=== PATIENT | female | born 1995 | race Two or more races ===

== ENCOUNTER 2017-10-01 13:46 | Emergency (ER) | payer SELFPAY ==
[2017-10-01 13:59] VITALS: BP 124/70
--- NOTE | 2017-10-01 14:18 | ER Document Report ---
ED GI/ - General Mode of Arrival: Ambulatory Information source: Patient - General Chief Complaint: Vaginal Pain Stated Complaint: LABIA SWELLING Time Seen by Provider: 10/01/17 14:09 Notes: Patient is a 22-year-old female who presents to the emergency department today with complaints of a bruising over her vaginal area with slight pain. Patient states she had sexual intercourse 3 days ago and noticed this bruising after that. Patient states her last menstrual period was September 11. Patient denies any vaginal discharge, concern for STD, vaginal itching, vomiting, chills, or abdominal pain. (KIKI SMITH) - Related Data Allergies/Adverse Reactions: No Known Allergies Allergy (Verified 10/04/17 14:53) Past Medical History - General Information source: Patient - Social History Smoking Status: Never Smoker Cigarette use (# per day): No Frequency of alcohol use: None Drug Abuse: None Lives with: Family Family History: Reviewed & Not Pertinent - Medical History Medical History: Negative Surgical Hx: Negative Review of Systems - Review of Systems Constitutional: No symptoms reported EENT: No symptoms reported Cardiovascular: No symptoms reported Respiratory: No symptoms reported Gastrointestinal: No symptoms reported Genitourinary: No symptoms reported Female Genitourinary: See HPI, Other - vaginal pain, bruising Musculoskeletal: No symptoms reported Skin: No symptoms reported Hematologic/Lymphatic: No symptoms reported Neurological/Psychological: No symptoms reported -: Yes All other systems reviewed and negative Physical Exam - Vital signs Vitals: Temp Pulse Resp BP Pulse Ox 99.4 F 79 16 124/70 98 10/01/17 13:58 10/01/17 13:58 10/01/17 13:58 10/01/17 13:58 10/01/17 13:58 - Notes Notes: Physical Exam: General: Alert, appears well. HEENT: Normocephalic. Atraumatic. PERRL. Extraocular movements intact. Oropharynx clear. Neck: Supple. Non-tender. Respiratory: No respiratory distress. Clear and equal breath sounds bilaterally. Cardiovascular: Regular rate and rhythm. Abdominal: Normal Inspection. Non-tender. No distension. Normal Bowel Sounds. Female Genitourinary: Performed with female nurse Valerie in attendance. contusion noted on right labia majora with no vesicles erythema or concerns of infection Back: Non-tender. No deformity or step off. Extremities: Moves all four extremities. Upper extremities: Normal inspection. Normal ROM. Lower extremities: Normal inspection. No edema. Normal ROM. Neurological: Normal cognition. AAOx4. Normal speech. Psychological: Normal affect. Normal Mood. Skin: Warm. Dry. Normal color. (KIKI SMITH) Course - Re-evaluation Re-evalutation: 10/01/17 14:24 Patient has bruising with contusion noted on right labia majora with no vesicles erythema or concerns of infection. No cystic structures palpated. Patient states that this occurred approximately 3 days ago swelling has gone down from the initial day. She also states she had intercourse 3 days ago. Her signs and symptoms are consistent with contusion secondary to intercourse. Advised patient to remain abstinent for the next several days as symptoms should reside. Return precautions were provided (KYREE RILEY) - Vital Signs Vital signs: Temp Pulse Resp BP Pulse Ox 99.4 F 79 16 124/70 98 10/01/17 13:58 10/01/17 13:58 10/01/17 13:58 10/01/17 13:58 10/01/17 13:58 Discharge - Discharge Clinical Impression: Contusion of labia majora Qualifiers: Encounter type: initial encounter Qualified Code(s): S30.23XA - Contusion of vagina and vulva, initial encounter Condition: Good Disposition: HOME, SELF-CARE Instructions: Contusion ([facility]) Referrals: [facility] [NO LOCAL MD] - Follow up as needed Scribe Attestation: 10/04/17 18:44 I personally performed the services described documentation, reviewed and edited the documentation which was dictated to describe my presence, and it accurately records my words and actions. (YKREE RILEY) Scribe Documentation - Scribe Written by Scribe:: Rai Cash, 10/01/2017 1440 acting as scribe for :: Elian
== END 2017-10-01 14:30 | disposition home or self-care (01) ==
LOC: ER 13:46
DX: S30.23XA Contusion of vagina and vulva, initial encounter (principal); R10.2 Pelvic and perineal pain; N90.89 Other specified noninflammatory disorders of vulva and perineum; W51.XXXA Accidental striking against or bumped into by another person, initial encounter
CPT/HCPCS: 99283

== ENCOUNTER 2017-10-02 21:43 | Emergency (ER) | payer SELFPAY ==
--- NOTE | 2017-10-03 00:12 | ER Document Report ---
ED General - General Chief Complaint: Vaginal Pain Stated Complaint: VAGINAL ISSUES/PAIN Time Seen by Provider: 10/03/17 00:11 Notes: Patient is a 22-year-old female who presents with ongoing bruising to her right labia. The patient was seen in the emergency department for the same states that the bruising and swelling has worsened prompting her to return to the emergency department. She states that the pain as a throbbing, aching, constant pain and has made it difficult to walk. She has not tried anything to improve the pain. She denies any discharge or bleeding from the area. No recurrent penetrative intercourse or trauma to the area. She denies a history of similar symptoms prior to the past 2 days. The swelling and bruising did start after sexual intercourse. TRAVEL OUTSIDE OF THE [place] IN LAST 30 DAYS: No - Related Data Allergies/Adverse Reactions: No Known Allergies Allergy (Verified 10/02/17 23:32) Past Medical History - General Information source: Patient - Social History Smoking Status: Never Smoker Chew tobacco use (# tins/day): No Frequency of alcohol use: None Drug Abuse: None Lives with: Spouse/Significant other Family History: Reviewed & Not Pertinent Patient has suicidal ideation: No Patient has homicidal ideation: No Renal/ Medical History: Denies: Hx Peritoneal Dialysis Review of Systems - Review of Systems Notes: Constitutional: Negative for fever. HENT: Negative for sore throat. Eyes: Negative for visual changes. Cardiovascular: Negative for chest pain. Respiratory: Negative for shortness of breath. Gastrointestinal: Negative for abdominal pain, vomiting or diarrhea. Genitourinary: Positive for bruising and swelling to the right labia majora and minora Musculoskeletal: Negative for back pain. Skin: Negative for rash. Neurological: Negative for headaches, weakness or numbness. 10 point ROS negative except as marked above and in HPI. Physical Exam - Vital signs Vitals: Temp Pulse Resp BP Pulse Ox 98.6 F 101 H 16 128/68 H 99 10/02/17 22:04 10/02/17 22:04 10/02/17 22:04 10/02/17 22:04 10/02/17 22:04 Interpretation: Tachycardic Notes: PHYSICAL EXAMINATION: GENERAL: Well-appearing, well-nourished and in no acute distress. HEAD: Atraumatic, normocephalic. EYES: sclera anicteric, conjunctiva are normal. ENT: Moist mucous membranes. NECK: Normal range of motion LUNGS: Normal work of breathing HEART: 2+ radial pulses bilaterally : There is prominent bruising and ecchymosis to the entirety of the right labia majora without any fluctuance or areas to suggest a abscess or Bartholin' s gland cyst. No additional external vaginal findings. EXTREMITIES: no pitting or edema. No cyanosis. NEUROLOGICAL: No focal neurological deficits. Moves all extremities spontaneously and on command. PSYCH: Normal mood, normal affect. SKIN: Warm, Dry, normal turgor, no rashes or lesions noted. Course - Re-evaluation Re-evalutation: 10/03/17 03:57 Presentation is most consistent with progressive bruising to the right labia majora after sexual intercourse. I have extended the patient that the swelling and bruising will likely peak at 3 days from the time of injury and then gradually improved. There is not appear to be any signs of infection or abscess collection. The patient denies any additional new or alternative concerns. The remainder of her exam is unremarkable. I have reviewed appropriate sex practices with the patient and her boyfriend at the bedside to prevent recurrent injuries. I have also advised pelvic rest until the patient has had complete resolution of the swelling and bruising. At this time will discharge with return precautions and follow-up recommendations. Verbal discharge instructions given a the bedside and opportunity for questions given. Medication warnings reviewed. Patient is in agreement with this plan and has verbalized understanding of return precautions and the need for primary care follow-up in the next 24-72 hours. - Vital Signs Vital signs: Temp Pulse Resp BP Pulse Ox 98.0 F 71 16 115/75 99 10/03/17 00:20 10/03/17 00:20 10/03/17 00:20 10/03/17 00:20 10/03/17 00:20 Discharge - Discharge Clinical Impression: Hematoma of labia majora Contusion of labia majora Qualifiers: Encounter type: initial encounter Qualified Code(s): S30.23XA - Contusion of vagina and vulva, initial encounter Condition: Good Disposition: HOME, SELF-CARE Additional Instructions: Please avoid any penetrative sexual intercourse until your labia has completely healed. For your pain: Take ibuprofen 600 mg and acetaminophen 1000 mg every 6 hours together as needed for pain. You can also apply a cool compress for a covered ice pack to the area to help reduce the pain. Return for worsening pain , fever, or any other symptoms that are worrisome to you.
[2017-10-03 00:23] VITALS: BP 115/75
== END 2017-10-03 00:22 | disposition home or self-care (01) ==
LOC: ER 21:43
DX: S30.23XA Contusion of vagina and vulva, initial encounter (principal); X58.XXXA Exposure to other specified factors, initial encounter; R10.2 Pelvic and perineal pain
CPT/HCPCS: 99283

== ENCOUNTER 2017-10-04 14:51 | Emergency (ER) | payer SELFPAY ==
--- NOTE | 2017-10-04 15:12 | ER Document Report ---
ED Medical Screen (RME) - General Chief Complaint: Vaginal Pain Stated Complaint: VAGINAL PAIN Time Seen by Provider: 10/04/17 15:03 Mode of Arrival: Ambulatory Information source: Patient Notes: 22 y.o female with a PMHx of tachycardia presents to the ED with vaginal bruising of onset 09/30/17. She has been seen here in the ED twice for her vaginal pain and denies having intercourse since the bruising began but now notices bumps and is achy. She denies any N/V/D or fevers. Pt denies any other medical issues. She denies any known thyroid issues. She is from [place] and has had a recent stress test for her hx of tachycardia. I have greeted and performed a rapid initial assessment of the patient. A comprehensive ED assessment and evaluation of the patient, analysis of test results, and completion of the medical decision making process will be conducted by additional ED providers. PHYSICAL EXAM: General: Alert, appears well. HEENT: Normocephalic. Atraumatic. Neck: Supple. Cardiovascular: Tachycardic rate regular rhythm. Respiratory: CTAB Abdominal: No distension. Extremities: Moves all four extremities. Neurological: Normal cognition. AAOx4. Normal speech. Psychological: Normal affect. Normal Mood. TRAVEL OUTSIDE OF THE [place] IN LAST 30 DAYS: No - Related Data Allergies/Adverse Reactions: No Known Allergies Allergy (Verified 10/04/17 14:53) Past Medical History Renal/ Medical History: Denies: Hx Peritoneal Dialysis Physical Exam - Vital signs Vitals: Temp Pulse Resp BP Pulse Ox 98.8 F 146 H 28 H 121/89 H 99 10/04/17 14:58 10/04/17 14:58 10/04/17 14:58 10/04/17 14:58 10/04/17 14:58 Course - Vital Signs Vital signs: Temp Pulse Resp BP Pulse Ox 98.8 F 146 H 28 H 121/89 H 99 10/04/17 14:58 10/04/17 14:58 10/04/17 14:58 10/04/17 14:58 10/04/17 14:58 Scribe Documentation - Scribe Written by Scribe:: Rai Pascal 10/04/17 2315 acting as scribe for :: Elian
[2017-10-04] MEDS ORDERED: NORMAL SALINE 1000 ML 1,000 ML IV ONE (15:36)
--- NOTE | 2017-10-04 15:57 | ER Document Report ---
ED General - General Chief Complaint: Vaginal Pain Stated Complaint: VAGINAL PAIN Time Seen by Provider: 10/04/17 15:03 Mode of Arrival: Ambulatory Information source: Patient, [facility] Records Notes: 22-year-old female with a history of tachycardia presents for the third time this week with complaints of bumps on her labia. Patient was seen earlier this week for labia pain and found to have significant swelling and contusion secondary to rough intercourse which was consensual. Patient denies history of STD, but no discharge. She is sexually active with one partner but does not use protection. Her last menstrual period was September 11, 2017. She denies any other complaints. She states that she has been icing the labia and has not had intercourse since that time. Patient is from [place]. She states that her resting heart rate is between 110 -120. TRAVEL OUTSIDE OF THE [place] IN LAST 30 DAYS: No - HPI Onset: Other Onset/Duration: Gradual Quality of pain: Achy, Throbbing Severity: None Associated symptoms: None Exacerbated by: Movement Relieved by: Remaining still Similar symptoms previously: Yes Recently seen / treated by doctor: Yes - Related Data Allergies/Adverse Reactions: No Known Allergies Allergy (Verified 10/04/17 14:53) Past Medical History - General Information source: Patient, [facility] Records - Social History Smoking Status: Never Smoker Frequency of alcohol use: Occasional Drug Abuse: None Lives with: Family Family History: Reviewed & Not Pertinent Patient has suicidal ideation: No Patient has homicidal ideation: No - Past Medical History Cardiac Medical History: Reports: Other - Tachycardia Renal/ Medical History: Denies: Hx Peritoneal Dialysis Review of Systems - Review of Systems Notes: REVIEW OF SYSTEMS: CONSTITUTIONAL : Denies fever, chills, or sweats. Denies recent illness. Denies weight loss, recent hospitalizations. EENT: Denies visual changes, eye pain. Denies nasal or sinus congestion or discharge. Denies sore throat, oral lesions, difficulty swallowing. CARDIOVASCULAR: Denies chest pain. Denies palpitations. Denies lower extremity edema. RESPIRATORY: Denies cough, cold, or chest congestion. Denies shortness of breath, wheezing. GASTROINTESTINAL: Denies abdominal pain or distention. Denies nausea, vomiting , or diarrhea. Denies blood in vomitus, stools, or per rectum. Denies black, tarry stools. Denies constipation. GENITOURINARY: Denies difficulty urinating, painful urination, frequency, blood in urine, or vaginal discharge. MUSCULOSKELETAL: Denies back or neck pain or stiffness. Denies joint pain or swelling. SKIN: Denies rash, lesions or sores. HEMATOLOGIC : Denies easy bruising or bleeding. LYMPHATIC: Denies swollen glands. NEUROLOGICAL: Denies confusion or altered mental status. Denies passing out or loss of consciousness. Denies dizziness or lightheadedness. Denies headache. Denies weakness or paralysis. Denies problems difficulty with ambulation, slurred speech. Denies sensory loss, numbness, or tingling. Denies seizures. PSYCHIATRIC: Denies anxiety or stress. Denies depression, suicidal ideation, or homicidal ideation. Denies visual or auditory hallucinations. Physical Exam - Vital signs Vitals: Temp Pulse Resp BP Pulse Ox 98.8 F 146 H 28 H 121/89 H 99 10/04/17 14:58 10/04/17 14:58 10/04/17 14:58 10/04/17 14:58 10/04/17 14:58 Interpretation: Tachycardic. No: Hypoxic, Febrile - Notes Notes: PHYSICAL EXAMINATION: GENERAL: Well-appearing, well-nourished and in no acute distress. HEAD: Atraumatic, normocephalic. EYES: Pupils equal round and reactive to light, extraocular movements intact, conjunctiva are normal. ENT: Nares patent, oropharynx clear without exudates. Moist mucous membranes. NECK: Normal range of motion, supple without lymphadenopathy LUNGS: Breath sounds clear to auscultation bilaterally and equal. No wheezes rales or rhonchi. HEART: Regular rate and rhythm without murmurs ABDOMEN: Soft, nontender, nondistended abdomen. No guarding, no rebound. No masses appreciated. Female : 2 small flesh like lesions just superior to the introitus. Nonvesicular, nonpustular, nontender. Labial swelling, bruising, right >left. no vaginal discharge Musculoskeletal: Normal range of motion, no pitting or edema. No cyanosis. NEUROLOGICAL: Cranial nerves grossly intact. Normal speech, normal gait. Normal sensory, motor exams PSYCH: Normal mood, normal affect. SKIN: Warm, Dry, normal turgor, Course - Re-evaluation Re-evalutation: 10/04/17 15:56 22-year-old female with known tachycardia presents for the third time this week for concern of labial bumps that she saw this morning. Patient was seen earlier this week for labial contusions after consensual rough sex. Upon arrival patient is tachycardic, afebrile. She does not appear toxic or dehydrated. She is in no acute distress. Previous medical records were reviewed. Giorgio is significant for 2 small flesh-colored pinpoint bumps that do not appear to be herpetic. Swabs were obtained and sent. VSS. Patient's is in NAD. exam is significant for labial swelling , bruising and two pinpoint flesh colored non-tender lesions superior to entroitos, does not look like hsv, hpv. swabs obtained and pending. Patient d/c'd in stable condition. 10/05/17 05:38 - Vital Signs Vital signs: Temp Pulse Resp BP Pulse Ox 98.7 F 87 17 112/73 99 10/04/17 17:54 10/04/17 17:54 10/04/17 17:54 10/04/17 17:54 10/04/17 17:54 - Laboratory Result Diagrams: 10/04/17 15:50 10/04/17 15:50 Laboratory results interpreted by me: 10/04/17 10/04/17 10/04/17 15:50 15:50 16:58 Lymphocytes % 9.2 L Monocytes % 15.2 H Total Bilirubin 2.8 H Urine Protein >=500 H Urine Glucose (UA) 50 H Urine Ketones 80 H Urine Blood MODERATE H Urine Urobilinogen 2.0 H - EKG Interpretation by Ut EKG shows normal: Sinus rhythm Rate: Tachycardia Rhythm: NSR When compared to previous EKG there are: No significant change Discharge - Discharge Clinical Impression: Lesion of labia, Tachycardia, Labial swelling, labial bruising, Hematoma of labia majora Contusion of labia majora Qualifiers: Encounter type: subsequent encounter Qualified Code(s): S30.23XD - Contusion of vagina and vulva, subsequent encounter Condition: Good Disposition: HOME, SELF-CARE Instructions: Genital Herpes ([facility]), Contusion ([facility]) Additional Instructions: Your exam is not consistent with herpes or any other sexually transmitted disease. The lab tests for herpes will not result today but we will call you if they are positive. No home-going medications are recommended at this time. Follow up with your physician tomorrow for further care or return to the ED IMMEDIATELY if symptoms worsen or new concerns occur. If you cannot afford to follow up with your primary care physician a list of low cost clinics have been provided at the end of your discharge papers as well.
[2017-10-04 16:12] LABS: ABSOLUTE LYMPHOCYTES (AUTO) 0.7 10^3/uL (0.5-4.7); ABSOLUTE MONOCYTES (AUTO) 1.1 10^3/uL (0.1-1.4); ABSOLUTE NEUT (AUTO) 5.6 10^3/uL (1.7-8.2); BASOPHILS % (AUTO) 0.3 % (0-2); EOSINOPHILS % (AUTO) 0.1 % (0-6); HEMATOCRIT 41.7 % (36.0-47.0); HEMOGLOBIN 14.3 g/dL (12.0-15.5); LYMPHOCYTES % (AUTO) 9.2 % (13-45); MEAN CORPUSCULAR HEMOGLOBIN 30.4 pg (27.0-33.4); MEAN CORPUSCULAR HGB CONC 34.4 g/dL (32.0-36.0); MEAN CORPUSCULAR VOLUME 88 fl (80-97); MONOCYTES % (AUTO) 15.2 % (3-13); PLATELET COUNT 156 10^3/uL (150-450); RED BLOOD COUNT 4.71 10^6/uL (3.72-5.28); RED CELL DISTRIBUTION WIDTH 13.1 % (11.5-14.0); SEGMENTED NEUTROPHILS % (AUTO) 75.2 % (42-78); TOTAL CELLS COUNTED % (AUTO) 100 %; WHITE BLOOD COUNT 7.5 10^3/uL (4.0-10.5)
[2017-10-04 16:31] LABS: ALANINE AMINOTRANSFERASE 24 U/L (9-52); ALBUMIN 4.7 g/dL (3.5-5.0); ALKALINE PHOSPHATASE 70 U/L (38-126); ANION GAP 15 (5-19); ASPARTATE AMINO TRANSFERASE 21 U/L (14-36); BILIRUBIN,DIRECT 0.2 mg/dL (0.0-0.4); BILIRUBIN,TOTAL 2.8 mg/dL (0.2-1.3); BLOOD UREA NITROGEN 14 mg/dL (7-20); CALCIUM 9.7 mg/dL (8.4-10.2); CARBON DIOXIDE 23 mmol/L (22-30); CHLORIDE 104 mmol/L (98-107); GLUCOSE 87 mg/dL (75-110); POTASSIUM 3.9 mmol/L (3.6-5.0); SODIUM 141.7 mmol/L (137-145); TOTAL PROTEIN 7.8 g/dL (6.3-8.2)
--- NOTE | 2017-10-04 16:42 | EKG REPORT ---
SEVERITY:- ABNORMAL ECG - SINUS TACHYCARDIA PROBABLE LEFT ATRIAL ABNORMALITY CONSIDER [facility] W/ SECONDARY REPOL ABNORMALITY : Confirmed by: Malick Jimenes MD 04-Oct-2017 16:42:17
[2017-10-04 17:22] LABS: APPEARANCE,URINE SLIGHTLY-CLOUDY; BILIRUBIN,URINE NEGATIVE (NEGATIVE); COLOR,URINE YELLOW; GLUCOSE, URINE 50 mg/dL (NEGATIVE); KETONES,URINE 80 mg/dL (NEGATIVE); LEUKOCYTE ESTERASE,URINE NEGATIVE (NEGATIVE); NITRITE,URINE NEGATIVE (NEGATIVE); PROTEIN,URINE >=500 mg/dL (NEGATIVE); URINE SPECIFIC GRAVITY 1.024
[2017-10-04 17:55] VITALS: BP 112/73
[2017-10-06 23:36] LABS: HSV I DNA Negative (Negative)
[2017-10-07 10:17] LABS: HSV II DNA Negative (Negative)
== END 2017-10-04 18:03 | disposition home or self-care (01) ==
LOC: ER 14:51
DX: R39.89 Other symptoms and signs involving the genitourinary system (principal); S30.23XA Contusion of vagina and vulva, initial encounter; X58.XXXA Exposure to other specified factors, initial encounter; R00.0 Tachycardia, unspecified
CPT/HCPCS: 36415; 80053; 81001; 83735; 84443; 84703; 85025; 87529; 93005; 93010; 99284